=== PATIENT | male | born 1995 | race Caucasian/White ===

== ENCOUNTER 2019-05-02 22:01 | Emergency (ER) | payer SELFPAY ==
[~2019-05-02] VITALS: Ht 180.3 cm; Wt 88.9 kg
--- NOTE | 2019-05-02 22:20 | NUR ---
pt sitting up in bed with legs folded and shaky. Talking on phone with speaker and arguing with her. pt waiting to be medically cleared to be transferred to detox. Addendum: 05/02/19 at 2237 by DAVID [id number] pt given ativan po and called for Detox to pick him up now that he is medically cleared by ER physician. Addendum: 05/02/19 at 2243 by DAVID [id number] called Meghann venegas [facility] for detox [phone], states they will pick him up in 15minutes.
[2019-05-02] MEDS ORDERED: LORAZEPAM 0.5 MG TABLET PO ONE (22:30)
[2019-05-02] MEDS ORDERED: LORAZEPAM 1 MG TABLET ONE (22:34)
--- NOTE | 2019-05-02 22:45 | NUR ---
Patient discharged to home in stable conditon. Written and verbal after care instructions given. Patient verbalizes understanding of instructions. Meghann from [facility] will pick pt up in 15 minutes for Detox. Pt has been medically cleared per
[2019-05-02 22:58] VITALS: BP 142/81
== END 2019-05-02 22:56 | disposition home or self-care (01) ==
LOC: ER 22:04
DX: Z00.00 Encounter for general adult medical examination without abnormal findings (principal); F11.10 Opioid abuse, uncomplicated; F15.10 Other stimulant abuse, uncomplicated
CPT/HCPCS: A4663